=== PATIENT | female | born 1930 | race Caucasian/White ===

== ENCOUNTER → 2017-10-12 | Outpatient (CLI) | payer MEDICARE, BC ==
--- NOTE | 2017-10-12 14:58 | XR ---
EXAMINATION TYPE: XR abdomen acute w cxr DATE OF EXAM: 10/12/2017 COMPARISON: 09/28/2015 HISTORY: Pain TECHNIQUE: Supine, upright, and left side down lateral decubitus views of the abdomen are obtained. FINDINGS: Subsegmental changes at both lung bases suggestive of scar or atelectasis. Heart is enlarge d and is atherosclerotic change aorta with no pneumothorax or interstitial edema. Diffuse osteopenia and degenerative change of the spine. There is retained fecal debris within the right colon in a dilated bowel loop of small bowel the righ t abdomen. There is a large gallstone in the right upper quadrant. Scoliosis with degenerative change of the spine. Arthropathy of the right hip and postsurgical change left hip. Vascular calcifications noted. IMPRESSION: Nonspecific abdomen there is a dilated bowel loop in the right abdomen which could be related to loca lized ileus or enteritis. Partial obstruction not excluded correlate clinically. Gallstone
== END | disposition home or self-care (01) ==
LOC: RADXRYALE 14:28
PROVIDERS: ATTEND Family Medicine
DX: K80.20 Calculus of gallbladder without cholecystitis without obstruction (principal)
CPT/HCPCS: 74022

== ENCOUNTER 2017-10-15 12:13 | Emergency (ER) | payer MEDICARE, BC ==
[2017-10-15 15:01] LABS: Basophils % (A) 1 %; Eosinophils # (A) 0.2 k/uL (0-0.7); Eosinophils % (A) 3 %; HCT 40.9 % (34.0-46.0); HGB 13.8 gm/dL (11.4-16.0); Lymphocytes # (A) 2.1 k/uL (1.0-4.8); Lymphocytes % (A) 28 %; MCH 31.4 pg (25.0-35.0); MCHC 33.8 g/dL (31.0-37.0); MCV 92.8 fL (80.0-100.0); Mean Platelet Volume 7.2; Monocytes # (A) 0.3 k/uL (0-1.0); Monocytes % (A) 4 %; Neutrophils # (A) 4.6 k/uL (1.3-7.7); Neutrophils % (A) 63 %; Platelet Count 237 k/uL (150-450); RBC 4.41 m/uL (3.80-5.40); RDW 14.2 % (11.5-15.5); WBC 7.3 k/uL (3.8-10.6)
[2017-10-15 15:08] LABS: Albumin 3.7 g/dL (3.5-5.0); Potassium 3.5 mmol/L (3.5-5.1); Total Bilirubin 0.7 mg/dL (0.2-1.3); Total Protein 6.7 g/dL (6.3-8.2)
[2017-10-15] MEDS ORDERED: SODIUM CHLORIDE 0.9% 1,000 ML IV ONE (15:51)
[2017-10-15] MEDS ORDERED: MORPHINE SULFATE 2 MG/ML SYRINGE IVP ONE (15:52)
[2017-10-15] MEDS ORDERED: SODIUM CHLORIDE 0.9% 1,000 ML IV SCH (16:00)
[2017-10-15 16:41] LABS: Appearance,Urine Clear (Clear); Bacteria,Urine Few /hpf; Bilirubin,Urine Negative (Negative); Blood,Urine Negative (Negative); Color,Urine Yellow; Glucose,Urine (UA) Negative (Negative); Hyaline Casts,Urine 3 /lpf (0-2); Ketones,Urine Negative (Negative); Leukocyte Esterase,Urine Moderate (Negative); Mucus,Urine Rare /hpf; Nitrite,Urine Negative (Negative); PH, Urine 7.5 (5.0-8.0); Protein,Urine Negative (Negative); RBC,Urine 1 /hpf (0-5); Specific Gravity,Urine 1.012 (1.001-1.035); Squamous Epithelial Cell,Urine 1 /hpf (0-4); Urobilinogen,Urine <2.0 mg/dL (<2.0); WBC,Urine 8 /hpf (0-5)
--- NOTE | 2017-10-15 17:08 | CT ---
EXAMINATION TYPE: CT abdomen pelvis wo con DATE OF EXAM: 10/15/2017 COMPARISON: NONE HISTORY: Generalized abdominal pain. CT DLP: 812 mGycm Automated exposure control for dose reduction was used. TECHNIQUE: Helical acquisition of images from the lung bases through the pelvis. FINDINGS: Lack of contrast may compromise sensitivity of the exam. LUNG BASES: Subpleural nodule is present on axial image 4 in the left lower lobe. There are some pare nchymal linear bands at the lung bases which may be due to atelectasis or scarring. Some minimal grou ndglass opacity is present dependently greater on the left than on the right, possible scarring. Meeta nary artery calcifications are present. There is a hiatal hernia present. AORTA: Dense calcifications are present within the wall of the aorta.. LIVER/GB: Calcified gallstone is noted. Liver shows no mass. PANCREAS: No significant abnormality is seen. SPLEEN: No significant abnormality is seen. ADRENALS: No significant abnormality is seen. KIDNEYS: Calcifications within the kidneys may be vascular, there is no evident ureteral calcificatio n REPRODUCTIVE ORGANS: No significant abnormality is seen. URINARY BLADDER: No significant abnormality is seen. BOWEL: Scattered diverticular change noted in this sigmoid colon. No evident bowel obstruction. Appe ndix is normal. FREE AIR: No Free Air is visible. ASCITES: None visible. PELVIC ADENOPATHY: None visualized. RETROPERITONEAL ADENOPATHY: No Retroperitoneal Adenopathy visible. OSSEOUS STRUCTURES: Patient is post left hip arthroplasty. Degenerative disc changes are present in the visualized spine. Suspect a disc herniation at L3-4 extending towards the left lateral aspect of the spinal canal. There is a spinal curvature.. IMPRESSION: NONCONTRAST EXAM. DIVERTICULOSIS. DEGENERATIVE DISC DISEASE, DISC HERNIATION IN THE LUMBAR SPINE. CHO LELITHIASIS. PROBABLE BASILAR LUNG SCARRING. PERIPHERAL VASCULAR OCCLUSIVE DISEASE. FOLLOW-UP NOBLE CATED.
--- NOTE | 2017-10-15 17:11 | ED ---
Abdominal Pain HPI - General Chief Complaint: Abdominal Pain Stated Complaint: poss bowel obstruction Time Seen by Provider: 10/15/17 15:20 Source: patient, family, RN notes reviewed, old records reviewed Mode of arrival: wheelchair Limitations: no limitations - History of Present Illness Initial Comments: Patient is a 87-year-old female presents emergency with 1 month of lower abdominal pain. She reports is worse with movement, and the pain seems a somewhat "catch her". With certain movement. Patient states that she's had infrequent stools. Patient had an x-ray 2 days ago which questioned ileus possible partial bowel obstruction. She reports that she's had no vomiting. No fevers or chills. Patient has been using MiraLAX and magnesium citrate to help her personal bowel movements. - Related Data Home Medications Medication Instructions Recorded Confirmed Furosemide [Lasix] 10 mg PO DAILY 12/10/14 10/15/17 Losartan/Hydrochlorothiazide 1 tab PO DAILY 12/10/14 10/15/17 [Losartan-Hctz 100-12.5 mg Tab] Omeprazole [PriLOSEC] 20 mg PO DAILY 12/10/14 10/15/17 Potassium Chloride [Klor-Con 10] 10 meq PO DAILY 12/10/14 10/15/17 Verapamil HCl 120 mg PO DAILY 12/10/14 10/15/17 Warfarin [Coumadin] 2.5 mg PO SUMOWETHFRSA 10/15/17 10/15/17 Warfarin [Coumadin] 5 mg PO TU 10/15/17 10/15/17 Previous Rx's Medication Instructions Recorded Aspirin EC [Ecotrin Low Dose] 81 mg PO DAILY tablet. 09/30/15 Atorvastatin Calcium [Lipitor] 80 mg PO DAILY #30 tab 09/30/15 Polyethylene Glycol 3350 [Miralax] 17 gm PO DAILY #30 packet 10/15/17 traMADol HCl [Ultram] 50 mg PO Q6HR PRN 3 Days #12 tab 10/15/17 Allergies Allergy/AdvReac Type Severity Reaction Status Date / Time No Known Allergies Allergy Verified 10/15/17 16:10 Review of Systems ROS Statement: Those systems with pertinent positive or pertinent negative responses have been documented in the HPI. ROS Other: All systems not noted in ROS Statement are negative. Past Medical History Past Medical History: Atrial Fibrillation, GERD/Reflux, Hyperlipidemia, Hypertension, Thyroid Disorder Additional Past Medical History / Comment(s): States she has cataracts, macular degeneration, glaucoma; thyroid removed in 1952, hip fracture left hip 08/22/2015 History of Any Multi-Drug Resistant Organisms: None Reported Past Surgical History: Tonsillectomy Additional Past Surgical History / Comment(s): Thyroidectomy in 1952, B/L carotid endartarectomy 2001, colonoscopies-diverticulosis,RECENT LT HIP HEMIARTHROPLASTY. Past Anesthesia/Blood Transfusion Reactions: No Reported Reaction Past Psychological History: No Psychological Hx Reported Smoking Status: Former smoker Past Alcohol Use History: None Reported Past Drug Use History: None Reported - Past Family History Father Family Medical History: Myocardial Infarction ([place]) Mother Additional Family Medical History / Comment(s): Thinks mother had congestive heart General Exam - General Exam Comments Initial Comments: 87-year-old female. Alert and oriented. No significant distress. Limitations: no limitations General appearance: alert, in no apparent distress Head exam: Present: atraumatic, normocephalic, normal inspection Eye exam: Present: normal appearance, PERRL, EOMI. Absent: scleral icterus, conjunctival injection, periorbital swelling ENT exam: Present: normal exam, mucous membranes moist Neck exam: Present: normal inspection. Absent: tenderness, meningismus, lymphadenopathy Respiratory exam: Present: normal lung sounds bilaterally. Absent: respiratory distress, wheezes, rales, rhonchi, stridor Cardiovascular Exam: Present: regular rate, normal rhythm, normal heart sounds, other. Absent: systolic murmur, diastolic murmur, rubs, gallop, clicks GI/Abdominal exam: Present: soft, normal bowel sounds, other (Patient has no focal tenderness however she reports that her abdomen is painful whenever she moves positions.). Absent: distended, tenderness, guarding, rebound, rigid Course Vital Signs 10/15/17 10/15/17 13:19 19:20 Temperature 97.5 F L 98.1 F Pulse Rate 69 91 Respiratory 16 18 Rate Blood Pressure 100/67 169/81 O2 Sat by Pulse 95 96 Oximetry Medical Decision Making - Medical Decision Making 87-year-old female presents emergency department with a few months of abdominal pain. Also reports decreased stool output. She has no other complaints denies any chest pain shortness of breath. Patient's labwork was reviewed. Mild elevation. Creatinine over his last visits. She was given a fluid bolus. Patient's CT and pelvis without contrast was completed. There is no evidence of any acute abnormality. She had changes throughout the spine. Does have peripheral vascular disease. Patient's whereabouts the findings of the CT. There is no signs of obstruction. I Patient does appear cell constipated. We' ll put the Patient on stool softeners and continue magnesium citrate. Patient' s abdominal pain is worse with movement. Whenever she sits up. It seems to be muscular skeletal in nature. Positive Kernig sign. Patient will be discharged with anti-inflammatory medicine and short course of pain medicine the Patient is here. I discussed appropriate follow-up with PCP. All questions answered return parameters were discussed. - Lab Data Result diagrams: 10/15/17 14:20 10/15/17 14:20 Lab Results 10/15/17 10/15/17 10/15/17 Range/Units 14:20 14:20 16:03 WBC 7.3 (3.8-10.6) k/uL RBC 4.41 (3.80-5.40) m/uL Hgb 13.8 (11.4-16.0) gm/dL Hct 40.9 (34.0-46.0) % MCV 92.8 (80.0-100.0) fL MCH 31.4 (25.0-35.0) pg MCHC 33.8 (31.0-37.0) g/dL RDW 14.2 (11.5-15.5) % Plt Count 237 (150-450) k/uL Neutrophils % 63 % Lymphocytes % 28 % Monocytes % 4 % Eosinophils % 3 % Basophils % 1 % Neutrophils # 4.6 (1.3-7.7) k/uL Lymphocytes # 2.1 (1.0-4.8) k/uL Monocytes # 0.3 (0-1.0) k/uL Eosinophils # 0.2 (0-0.7) k/uL Basophils # 0.0 (0-0.2) k/uL Sodium 138 (137-145) mmol/L Potassium 3.5 (3.5-5.1) mmol/L Chloride 96 L (98-107) mmol/L Carbon Dioxide 31 H (22-30) mmol/L Anion Gap 11 mmol/L BUN 26 H (7-17) mg/dL Creatinine 1.24 H (0.52-1.04) mg/dL Est GFR (CKD-EPI)AfAm 45 (>60 ml/min/1.73 sqM) Est GFR (CKD-EPI)NonAf 39 (>60 ml/min/1.73 sqM) Glucose 137 H (74-99) mg/dL Calcium 9.0 (8.4-10.2) mg/dL Total Bilirubin 0.7 (0.2-1.3) mg/dL AST 32 (14-36) U/L ALT 23 (9-52) U/L Alkaline Phosphatase 125 (38-126) U/L Total Protein 6.7 (6.3-8.2) g/dL Albumin 3.7 (3.5-5.0) g/dL Amylase 94 (30-110) U/L Lipase 94 (23-300) U/L Urine Color Yellow Urine Appearance Clear (Clear) Urine pH 7.5 (5.0-8.0) Ur Specific [place] 1.012 (1.001-1.035) Urine Protein Negative (Negative) Urine Glucose (UA) Negative (Negative) Urine Ketones Negative (Negative) Urine Blood Negative (Negative) Urine Nitrite Negative (Negative) Urine Bilirubin Negative (Negative) Urine Urobilinogen <2.0 (<2.0) mg/dL Ur Leukocyte Esterase Moderate H (Negative) Urine RBC 1 (0-5) /hpf Urine WBC 8 H (0-5) /hpf Ur Squamous Epith Cells 1 (0-4) /hpf Urine Bacteria Few H (None) /hpf Hyaline Casts 3 H (0-2) /lpf Urine Mucus Rare H (None) /hpf 10/15/ 19:54 EKG shows atrial fibrillation with right Dillon block. Abnormal EKG. Ventricular rate 86 bpm. ND interval is and checked. Her hydration 138. QT QTc is 442/528 ms. - Radiology Data Radiology results: report reviewed Noncontrast exam. Diverticulosis. Degenerative disease. Disc herniation lumbar spine. Cholelithiasis. Probable basilar lung scarring. Peripheral vascular occlusive disease follow up as indicated. Disposition Clinical Impression: Abdominal wall pain, Constipation, DDD (degenerative disc disease) Disposition: HOME SELF-CARE Condition: Good Instructions: Constipation (ED), Abdominal Pain (ED) Additional Instructions: Patient should have 2-3 scoops of MiraLAX powder with water a day. Make sure having 8 glasses of water minimum a day. Take Tylenol or Motrin for the pain with her muscles in the abdomen. He can also use Ultram if the pain is severe, make sure you are monitored if taking this medication. You are at risk for falls. Patient should follow-up in one week with Dr. Newell. Return to the emergency department if any alarming signs or symptoms occur. Prescriptions: Polyethylene Glycol 3350 [Miralax] 17 gm PO DAILY #30 packet traMADol HCl [Ultram] 50 mg PO Q6HR PRN 3 Days #12 tab PRN Reason: Pain Is patient prescribed a controlled substance at d/c from ED?: Yes When asked, does pt state using other controlled substances?: No If prescribed controlled substance>3 days was MAPS reviewed?: Prescribed <3 Days If opioid is for acute pain is fill amount 7 days or less?: Yes If Rx opioid, was Start Talking consent form obtained?: Yes Referrals: Herbert Newell MD [Primary Care Provider] - 1-2 days Time of Disposition: 18:33
[2017-10-15 19:21] VITALS: BP 169/81; PULSE 91; RESP 18; TEMP 98.1
== END 2017-10-15 19:25 | disposition home or self-care (01) ==
LOC: EC 12:13
DX: K59.00 Constipation, unspecified (principal); M51.36 Other intervertebral disc degeneration, lumbar region; K57.90 Diverticulosis of intestine, part unspecified, without perforation or abscess without bleeding; M51.26 Other intervertebral disc displacement, lumbar region; K80.20 Calculus of gallbladder without cholecystitis without obstruction; I99.8 Other disorder of circulatory system; I48.91 Unspecified atrial fibrillation; I97.89 Other postprocedural complications and disorders of the circulatory system, not elsewhere classified; R94.31 Abnormal electrocardiogram [ECG] [EKG]; I73.9 Peripheral vascular disease, unspecified; I10 Essential (primary) hypertension; K21.9 Gastro-esophageal reflux disease without esophagitis; Z87.891 Personal history of nicotine dependence; Z79.01 Long term (current) use of anticoagulants; Z79.899 Other long term (current) drug therapy; Z98.890 Other specified postprocedural states; Z82.49 Family history of ischemic heart disease and other diseases of the circulatory system
CPT/HCPCS: 36415; 93005; 80053; 82150; 83690; 85025; 81001; 74176; 99285; 96374; 96361 ×3; J2270

== ENCOUNTER → 2018-06-11 | Outpatient (CLI) | payer MEDICARE, BC ==
--- NOTE | 2018-06-12 09:05 | XR ---
EXAMINATION TYPE: XR sacrum coccyx DATE OF EXAM: 06/11/2018 COMPARISON: NONE HISTORY: Pain Three views are submitted. Sacrum is intact. SI joints are symmetric. Coccyx appears to be intact. Visualized pelvic structures intact. There is diffuse osteopenia. Arthropathy of the right hip and postsurgical change left hip. Severe degenerative change lower lumbar spine. Bilateral changes of sa croiliitis. Calcifications in the pelvis likely vascular. IMPRESSION: 1. No acute fracture. 2. Diffuse osteopenia and severe degenerative disc disease lower lumbar spine.
== END | disposition home or self-care (01) ==
LOC: RADXRYALE 14:32
PROVIDERS: ATTEND Nurse Practitioner Family
DX: M51.36 Other intervertebral disc degeneration, lumbar region (principal); M85.88 Other specified disorders of bone density and structure, other site
CPT/HCPCS: 72220

== ENCOUNTER → 2019-04-03 | Outpatient (CLI) | payer MEDICARE, BC ==
--- NOTE | 2019-04-03 15:53 | XR ---
EXAMINATION TYPE: XR finger RT DATE OF EXAM: 04/03/2019 COMPARISON: NONE HISTORY: Pain and swelling TECHNIQUE: Two soft tissue edema noted. Views are submitted. FINDINGS: There is diffuse osteopenia. There is narrowing of the MCP, PIP and DIP joints of all digits. No eros abdirashid changes. There is a deformity involving the base of the middle phalanx fifth digit. IMPRESSION: 1. There is a deformity involving the base of the middle phalanx fifth digit suspicious for a fractur e. Extends to the articular surface. Likely along the volar plate correlate with point tenderness.
== END | disposition home or self-care (01) ==
LOC: RADXRYALE 15:13
PROVIDERS: ATTEND Nurse Practitioner Family
DX: M20.001 Unspecified deformity of right finger(s) (principal); L53.9 Erythematous condition, unspecified

== ENCOUNTER → 2019-04-07 | Outpatient (CLI) | payer MEDICARE, BC ==
--- NOTE | 2019-04-07 15:35 | CT ---
EXAMINATION TYPE: CT brain wo con DATE OF EXAM: 04/07/2019 COMPARISON: 09/28/2015 HISTORY: Frequent falls and confusion. CT DLP: [address] of the brain was performed. The ventricles, basal cisterns and sulci overlying the cerebral convexities demonstrate mild enlargem ent. There is no evidence for intracranial hemorrhage or sulcal effacement. There is decreased attenuation about the periventricular white matter and deep white matter of both c erebral hemispheres, compatible with chronic small vessel ischemia. Differential diagnosis does inclu de demyelination. No mass effects are seen.No midline shift. Osseous calvarium is intact. If symptoms persist consider MRI. IMPRESSION: 1. Age related atrophic and chronic small vessel ischemic change without acute intracranial process s een at this time.
== END | disposition home or self-care (01) ==
LOC: RADCTMAIN 15:09
PROVIDERS: ATTEND Family Medicine
DX: G31.1 Senile degeneration of brain, not elsewhere classified (principal); I67.82 Cerebral ischemia; R29.6 Repeated falls; R41.0 Disorientation, unspecified
CPT/HCPCS: 70450

== ENCOUNTER 2019-05-12 19:00 | Inpatient (IN) | payer MEDICARE, BC ==
[2019-05-12] MEDS ORDERED: LIDOCAINE 5% PATCH TOPICAL STA (19:32)
--- NOTE | 2019-05-12 19:35 | ED ---
General Adult HPI - General Chief complaint: Fall Stated complaint: Hip pain/Fall Time Seen by Provider: 05/12/19 19:15 Source: patient Mode of arrival: ambulatory Limitations: no limitations - History of Present Illness Initial comments: Dictation was produced using [employer] dictation software. please excuse any grammatical, word or spelling errors. Chief Complaint: 88-year-old female with past medical history of atrial fibrillation hypertension presents with back pain after fall. History of Present Illness:-year-old female she fell approximately 2 days ago. She states she sat on the toilet. 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 Patient states she fell backwards striking her back on the ball of the toilet. Patient not sure if she lost any consciousness. She is on Coumadin for atrial fibrillation. She was brought in by family members today. Patient states that she is here mostly for the back pain. She has pain gets worse in the right lower thoracic back area. She states that it significantly tender with palpation. Daughter also at bedside reports that patient has been having dizzy spells recently. She seemed to be wobbly on her feet. The ROS documented in this emergency department record has been reviewed and confirmed by me. Those systems with pertinent positive or negative responses have been documented in the HPI. All other systems are other negative and/or noncontributory. PHYSICAL EXAM: General Impression: Alert and oriented x3, not in acute distress HEENT: Normocephalic atraumatic, extra-ocular movements intact, pupils equal and reactive to light bilaterally, mucous membranes moist. Cardiovascular: Heart regular rate and rhythm, S1&S2 audible, no murmurs, rubs or gallops Chest: Lungs clear to auscultation bilaterally, ecchymoses noted over the right lower right thoracic area. Palpation to this area is exquisitely tender Abdomen: Bowel sounds present, abdomen soft, non-tender, non-distended, no organomegaly Musculoskeletal: Pulses present and equal in all extremities, no peripheral edema Motor: no focal deficits noted Neurological: CN II-XII grossly intact, no focal motor or sensory deficits noted Skin: Intact with no visualized rashes Psych: Normal affect and mood ED course: 88 y Old female presents after fall. Daughter also reports that patient has seemed to be more steady on her feet more than usual. Vital signs On arrival are within acceptable limits. Abdomen evaluation obtained. CBC, coag panel, metabolic panel obtained. INR 3.0. Urinalysis shows 25 white blood cells however patient does not have any urinary symptoms. We will withhold antibiotics at this time until cultures are completed. Computed tomography scan of the head and C-spine was obtained showing no acute processes. Chest CT is negative. Patient given Lidoderm patch over the area of her point tenderness. Discussed patient case with family. There were 3 daughters at bedside. They felt that patient is not safe for discharge. She lives at home with another elderly individual. Patient has had frequent falls recently she is also had difficulty performing her activities daily living. None of the daughters were able to care for patient if she was discharged. They're also concerned about some hallucinations that patient has been experiencing. Given that there is no seat discharged with patient would benefit from a short hospital admission with consultation to social work. Attempt was made to ambulate patient at bedside. She is very weak and even had difficulty standing. She'll be admitted to Dr. Harris's service. - Related Data Home Medications Medication Instructions Recorded Confirmed Furosemide [Lasix] 10 mg PO DAILY 12/10/14 05/12/19 Losartan/Hydrochlorothiazide 1 tab PO DAILY 12/10/14 05/12/19 [Losartan-Hctz 100-12.5 mg Tab] Omeprazole [PriLOSEC] 20 mg PO DAILY 12/10/14 05/12/19 Potassium Chloride [Klor-Con 10] 10 meq PO HS 12/10/14 05/12/19 Verapamil HCl 120 mg PO DAILY 12/10/14 05/12/19 Warfarin [Coumadin] 5 mg PO TU 10/15/17 05/12/19 Atorvastatin Calcium [Lipitor] 80 mg PO HS 05/12/19 05/12/19 Warfarin [Coumadin] 2.5 mg PO SUMOWETHFRSA 05/12/19 05/12/19 metFORMIN HCL 500 mg PO 05/12/19 05/12/19 Allergies Allergy/AdvReac Type Severity Reaction Status Date / Time No Known Allergies Allergy Verified 05/12/19 21:15 Review of Systems ROS Statement: Those systems with pertinent positive or pertinent negative responses have been documented in the HPI. ROS Other: All systems not noted in ROS Statement are negative. Past Medical History Past Medical History: Atrial Fibrillation, CVA/TIA, GERD/Reflux, Hyperlipidemia, Hypertension, Thyroid Disorder Additional Past Medical History / Comment(s): States she has cataracts, macular degeneration, glaucoma; thyroid removed in 1952, hip fracture left hip 08/22/2015 History of Any Multi-Drug Resistant Organisms: None Reported Past Surgical History: Tonsillectomy Additional Past Surgical History / Comment(s): Thyroidectomy in 1952, B/L carotid endartarectomy 2001, colonoscopies-diverticulosis,RECENT LT HIP HEMIARTHROPLASTY. Past Anesthesia/Blood Transfusion Reactions: No Reported Reaction Past Psychological History: No Psychological Hx Reported Smoking Status: Former smoker Past Alcohol Use History: None Reported Past Drug Use History: None Reported - Past Family History Father Family Medical History: Myocardial Infarction ([place]) Mother Additional Family Medical History / Comment(s): Thinks mother had congestive heart General Exam Limitations: no limitations Course Vital Signs 05/12/19 19:06 Temperature 97.7 F Pulse Rate 80 Respiratory 20 Rate Blood Pressure 130/65 O2 Sat by Pulse 98 Oximetry Medical Decision Making - Lab Data Result diagrams: 05/12/19 19:50 05/12/19 19:50 Lab Results 05/12/19 05/12/19 05/12/19 Range/Units 19:50 19:50 19:50 WBC 8.1 (3.8-10.6) k/uL RBC 4.34 (3.80-5.40) m/uL Hgb 14.1 (11.4-16.0) gm/dL Hct 41.7 (34.0-46.0) % MCV 96.2 (80.0-100.0) fL MCH 32.4 (25.0-35.0) pg MCHC 33.7 (31.0-37.0) g/dL RDW 13.4 (11.5-15.5) % Plt Count 193 (150-450) k/uL Neutrophils % 60 % Lymphocytes % 27 % Monocytes % 5 % Eosinophils % 5 % Basophils % 1 % Neutrophils # 4.8 (1.3-7.7) k/uL Lymphocytes # 2.2 (1.0-4.8) k/uL Monocytes # 0.4 (0-1.0) k/uL Eosinophils # 0.4 (0-0.7) k/uL Basophils # 0.1 (0-0.2) k/uL PT 29.7 H (9.0-12.0) sec INR 3.0 H (<1.2) APTT 36.0 H (22.0-30.0) sec Sodium 141 (137-145) mmol/L Potassium 3.6 (3.5-5.1) mmol/L Chloride 105 (98-107) mmol/L Carbon Dioxide 26 (22-30) mmol/L Anion Gap 10 mmol/L BUN 21 H (7-17) mg/dL Creatinine 1.04 (0.52-1.04) mg/dL Est GFR (CKD-EPI)AfAm 56 (>60 ml/min/1.73 sqM) Est GFR (CKD-EPI)NonAf 49 (>60 ml/min/1.73 sqM) Glucose 135 H (74-99) mg/dL Calcium 8.9 (8.4-10.2) mg/dL Magnesium 1.7 (1.6-2.3) mg/dL Troponin I (0.000-0.034) ng/mL Urine Color Urine Appearance (Clear) Urine pH (5.0-8.0) Ur Specific [place] (1.001-1.035) Urine Protein (Negative) Urine Glucose (UA) (Negative) Urine Ketones (Negative) Urine Blood (Negative) Urine Nitrite (Negative) Urine Bilirubin (Negative) Urine Urobilinogen (<2.0) mg/dL Ur Leukocyte Esterase (Negative) Urine RBC (0-5) /hpf Urine WBC (0-5) /hpf Ur Squamous Epith Cells (0-4) /hpf Hyaline Casts (0-2) /lpf Urine Mucus (None) /hpf 05/12/19 05/12/19 Range/Units 19:50 20:09 WBC (3.8-10.6) k/uL RBC (3.80-5.40) m/uL Hgb (11.4-16.0) gm/dL Hct (34.0-46.0) % MCV (80.0-100.0) fL MCH (25.0-35.0) pg MCHC (31.0-37.0) g/dL RDW (11.5-15.5) % Plt Count (150-450) k/uL Neutrophils % % Lymphocytes % % Monocytes % % Eosinophils % % Basophils % % Neutrophils # (1.3-7.7) k/uL Lymphocytes # (1.0-4.8) k/uL Monocytes # (0-1.0) k/uL Eosinophils # (0-0.7) k/uL Basophils # (0-0.2) k/uL PT (9.0-12.0) sec INR (<1.2) APTT (22.0-30.0) sec Sodium (137-145) mmol/L Potassium (3.5-5.1) mmol/L Chloride (98-107) mmol/L Carbon Dioxide (22-30) mmol/L Anion Gap mmol/L BUN (7-17) mg/dL Creatinine (0.52-1.04) mg/dL Est GFR (CKD-EPI)AfAm (>60 ml/min/1.73 sqM) Est GFR (CKD-EPI)NonAf (>60 ml/min/1.73 sqM) Glucose (74-99) mg/dL Calcium (8.4-10.2) mg/dL Magnesium (1.6-2.3) mg/dL Troponin I <0.012 (0.000-0.034) ng/mL Urine Color Yellow Urine Appearance Clear (Clear) Urine pH 5.5 (5.0-8.0) Ur Specific [place] 1.023 (1.001-1.035) Urine Protein Trace H (Negative) Urine Glucose (UA) Negative (Negative) Urine Ketones Negative (Negative) Urine Blood Negative (Negative) Urine Nitrite Negative (Negative) Urine Bilirubin Negative (Negative) Urine Urobilinogen <2.0 (<2.0) mg/dL Ur Leukocyte Esterase Large H (Negative) Urine RBC 1 (0-5) /hpf Urine WBC 25 H (0-5) /hpf Ur Squamous Epith Cells 1 (0-4) /hpf Hyaline Casts 6 H (0-2) /lpf Urine Mucus Rare H (None) /hpf Disposition Clinical Impression: Debility, Fall Disposition: ADMITTED IP TO THIS HOSP Condition: Fair Referrals: Herbert Newell MD [Primary Care Provider] - 1-2 days Decision Time: 21:48
[2019-05-12 20:13] LABS: Basophils # (A) 0.1 k/uL (0-0.2); Basophils % (A) 1 %; Eosinophils # (A) 0.4 k/uL (0-0.7); Eosinophils % (A) 5 %; HCT 41.7 % (34.0-46.0); HGB 14.1 gm/dL (11.4-16.0); Lymphocytes # (A) 2.2 k/uL (1.0-4.8); Lymphocytes % (A) 27 %; MCH 32.4 pg (25.0-35.0); MCHC 33.7 g/dL (31.0-37.0); MCV 96.2 fL (80.0-100.0); Mean Platelet Volume 8.4; Monocytes # (A) 0.4 k/uL (0-1.0); Monocytes % (A) 5 %; Neutrophils # (A) 4.8 k/uL (1.3-7.7); Neutrophils % (A) 60 %; Platelet Count 193 k/uL (150-450); RBC 4.34 m/uL (3.80-5.40); RDW 13.4 % (11.5-15.5); WBC 8.1 k/uL (3.8-10.6)
[2019-05-12 20:18] LABS: Calcium 8.9 mg/dL (8.4-10.2); Magnesium 1.7 mg/dL (1.6-2.3); Potassium 3.6 mmol/L (3.5-5.1)
[2019-05-12 20:27] LABS: Prothrombin Time 29.7 sec (9.0-12.0)
[2019-05-12 20:33] LABS: Appearance,Urine Clear (Clear); Bilirubin,Urine Negative (Negative); Blood,Urine Negative (Negative); Color,Urine Yellow; Glucose,Urine (UA) Negative (Negative); Hyaline Casts,Urine 6 /lpf (0-2); Ketones,Urine Negative (Negative); Leukocyte Esterase,Urine Large (Negative); Mucus,Urine Rare /hpf; Nitrite,Urine Negative (Negative); PH, Urine 5.5 (5.0-8.0); Protein,Urine Trace (Negative); RBC,Urine 1 /hpf (0-5); Specific Gravity,Urine 1.023 (1.001-1.035); Squamous Epithelial Cell,Urine 1 /hpf (0-4); Urobilinogen,Urine <2.0 mg/dL (<2.0); WBC,Urine 25 /hpf (0-5)
--- NOTE | 2019-05-12 20:36 | CT ---
EXAMINATION TYPE: CT chest wo con DATE OF EXAM: 05/12/2019 COMPARISON: None HISTORY: Upper back pain, fall injury x2 days ago CT DLP: 312.3 mGycm Automated exposure control for dose reduction was used. There is small right pleural effusion. Heart is enlarged. There is moderate hiatal hernia. There is s ome atelectasis and infiltrate right lung base. There is mild fibrotic changes at the lung bases. The re is aortic valvular calcification. There is coronary artery calcification. There are large densely calcified gallstones. The upper lung agarwal are clear. I see no compression f racture of the thoracic spine. IMPRESSION: Atherosclerotic vascular disease. Cardiomegaly. Right pleural effusion and right basilar mild infiltr ate and atelectasis. No evidence of any significant compression deformity of the thoracic spine. No displaced rib fracture seen.
--- NOTE | 2019-05-12 20:49 | CT ---
EXAMINATION TYPE: CT brain heena de la o con DATE OF EXAM: 05/12/2019 COMPARISON: 04/07/[address] scan HISTORY: Upper back pain, fall injury x2 days ago CT DLP: 1358.3 mGycm Automated exposure control for dose reduction was used. There is cerebral cortical atrophy. There is mild hypodensity in the periventricular white matter. Th ere is no mass effect nor midline shift. There is no sign of intracranial hemorrhage. Calvarium is in tact. Cervical vertebra have fairly normal alignment. There is a few millimeter anterior subluxation of C3 on C4. There is narrowing of disc spaces from C4 to C6. There is no compression fracture. There is mi ld multilevel cervical hypertrophic facet arthropathy. The skull base is intact. There is mucus reten tion cyst in the right side of the sphenoid sinus. 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 No fracture. Cerebral atrophy and chronic small vessel ischemia. No acute intracranial abnormality. No change comp ared to old exam.
[2019-05-12] MEDS ORDERED: NALOXONE 0.4 MG/ML 1 ML VIAL IV PRN (21:44)
[2019-05-12] MEDS: SODIUM CHLORIDE 0.9% 1,000 ML IV SCH (23:30)
[2019-05-13] MEDS: LOSARTAN 50 MG TAB PO SCH (08:29)
[2019-05-13] MEDS: LOSARTAN-HCTZ 50-12.5 MG 1 EACH TAB PO SCH (08:30)
[2019-05-13 09:50] LABS: INR 3.1 (<1.2)
[2019-05-13 09:51] LABS: Prothrombin Time 30.3 sec (9.0-12.0)
[2019-05-13] MEDS: PANTOPRAZOLE 40 MG TABLET PO SCH (12:42)
[2019-05-13] MEDS: VERAPAMIL SR 120 MG TABLET.ER PO SCH (12:42)
--- NOTE | 2019-05-13 15:46 | P.HPIM ---
History of Present Illness H&P Date: 05/13/19 Chief Complaint: Falls History of presenting complaint: This is a pleasant 88-year-old patient of Dr. Newell. Other extensive medical history to include chronic stable conditions, it'll fibrillation, hypothyroid, hypertension, hyperlipidemia, GERD, diverticulosis, osteoarthritis, left internal Carotid artery stenosis less than 69%, right internal carotid stenosis 90%.. Patient has been living with a friend for many years. He is unable to take care of the patient anymore as he has is on medical issues. Most of the history is obtained by the daughter the bedside. He does use a walker. what happens as patient will slowly from a fall backwards. Denies any chest pain no palpitation. Maybe getting dizzy upon standing up. Patient's memory has been failing. Appetite is okay no trouble with her bowels. Patient does complaint of pain in his lower back sometimes coming around to side and sometimes also pain in the right hip. Review of systems: GEN.: Tired EYES: None HEENT: Decreased hearing NECK: None RESPIRATORY: None CARDIOVASCULAR: None GASTROINTESTINAL: None GENITOURINARY: None MUSCULOSKELETAL: Pain in different joints LYMPHATICS: None HEMATOLOGICAL: None PSYCHIATRY: Forgetful NEUROLOGICAL: Uses a walker Past medical history to include: CVA, atrial fibrillation, hypothyroid, hyperlipidemia, hypertension, GERD, diverticulosis, osteoarthritis, left internal carotid artery stenosis less than 69%, right internal carotid artery stenosis more than 90%. Social history: Patient smoked a pack a day for close to 70 years. Stopped 4 years ago. Was li ving with a male friend for many years. Does use a walker.. No alcohol. Physical examination: VITAL SIGNS: 97, 77, 20, 92/62, 95% on room air GENERAL: BMI 28.9 sitting up in a chair, awake. EYES: Pupils equal. Conjunctiva normal. HEENT: External appearance of nose and ears normal, oral cavity grossly normal. NECK: JVD not raised; masses not palpable. HEART: First and second heart sounds are normal; no edema. LUNGS: Respiratory rate normal; clear to auscultation. ABDOMEN: Soft, nontender, liver spleen not palpable, no masses palpable. PSYCH: Alert and oriented x3; mood and affect normal. MUSCULOSKELETAL: Some tenderness over the right hip, evidence of OA especially in the hands NEUROLOGICAL: Cranial nerves grossly intact; no facial asymmetry, power and sensation grossly intact. LYMPHATICS: No lymph nodes palpable in the axilla and neck INVESTIGATIONS, reviewed in the clinical context: White count 8.1 hemoglobin 14.1 INR 3 potassium 3.6 creatinine 1.04 UA positive for leukoesterase, WBC EKG tracing personally reviewed by me-atrial flutter rate controlled CT chest without contrast cardiomegaly, some right pleural effusion and infiltrate, moderate hiatal hernia Computed tomography scan of the brain cerebral atrophy with no acute Assessment: -This is the patient's been having falls at home. As described with her daughter this only as falls backwards. The skin is dizzy on standing up. Patient have orthostatic hypotension and also possibly disequilibrium from multiple factors including severe arthritis and possibly neuropathy. -Persistent atrial fibrillation chronically on Coumadin -Coumadin monitoring -Hyperlipidemia -Essential hypertension -GERD -Chronic diverticulosis -Primary osteoarthritis -Left internal Stenosis Less Than 65% with Left Side and More Than 90% on the Right Side -Cognitive Impairment - Plan: We'll Get Orthostatic Checked.. PTOT Was Consulted. Home Medications Resumed. Gentle Hydration for Now. Patient Has No Focal Symptoms or Signs. Did Discuss with the Daughter Patient Will Probably Need Physical Therapy Inpatient Placeme nt and Subsequently Long-Term Care. Patient's Male Friend with Whom She Has Been Living for Many Years and Is Not Able to Care for Her Anymore Because of His on Medical Issues. Care Was Discussed with the Legal Intern Katie. Past Medical History Past Medical History: Atrial Fibrillation, CVA/TIA, GERD/Reflux, Hyperlipidemia, Hypertension, Thyroid Disorder Additional Past Medical History / Comment(s): States she has cataracts, macular degeneration, glaucoma; thyroid removed in 1952, hip fracture left hip 08/22/2015 History of Any Multi-Drug Resistant Organisms: None Reported Past Surgical History: Tonsillectomy Additional Past Surgical History / Comment(s): Thyroidectomy in 1952, B/L carotid endartarectomy 2001, colonoscopies-diverticulosis,RECENT LT HIP HEMIARTHROPLASTY. Past Anesthesia/Blood Transfusion Reactions: No Reported Reaction Past Psychological History: No Psychological Hx Reported Additional Psychological History / Comment(s): lives with boyfriend. Smoking Status: Former smoker Past Alcohol Use History: None Reported Additional Past Alcohol Use History / Comment(s): STARTED SMOKING AT AGE 12 OR 13, SMOKED 1PPD, QUIT SMOKING AUGUST 2015 Past Drug Use History: None Reported - Past Family History Father Family Medical History: Myocardial Infarction ([place]) Mother Additional Family Medical History / Comment(s): Thinks mother had congestive heart Medications and Allergies Home Medications Medication Instructions Recorded Confirmed Type Furosemide [Lasix] 10 mg PO DAILY 12/10/14 05/12/19 History Losartan/Hydrochlorothiazide 1 tab PO DAILY 12/10/14 05/12/19 History [Losartan-Hctz 100-12.5 mg Tab] Omeprazole [PriLOSEC] 20 mg PO DAILY 12/10/14 05/12/19 History Potassium Chloride [Klor-Con 10] 10 meq PO HS 12/10/14 05/12/19 History Verapamil HCl 120 mg PO DAILY 12/10/14 05/12/19 History Warfarin [Coumadin] 5 mg PO TU 10/15/17 05/12/19 History Atorvastatin Calcium [Lipitor] 80 mg PO HS 05/12/19 05/12/19 History Warfarin [Coumadin] 2.5 mg PO SUMOWETHFRSA 05/12/19 05/12/19 History metFORMIN HCL 500 mg PO HS 05/12/19 05/12/19 History Allergies Allergy/AdvReac Type Severity Reaction Status Date / Time No Known Allergies Allergy Verified 05/12/19 21:15 Physical Exam Vitals: Vital Signs Temp Pulse Pulse Resp BP BP Pulse Ox 05/13/19 07:00 97.0 F L 77 20 92/62 95 05/12/19 23:00 97.4 F L 80 18 153/89 92 L 05/12/19 19:06 97.7 F 80 20 130/65 98 Intake and Output 05/12/19 05/13/19 05/13/19 22:59 06:59 14:59 Intake Total 100 Balance 100 Intake: Oral 100 Other: Voiding Method Toilet # Voids 1 Weight 67.086 kg Results CBC & Chem 7: 05/12/19 19:50 05/12/19 19:50 Labs: Abnormal Lab Results - Last 24 Hours (Table) 05/12/19 05/12/19 05/12/19 Range/Units 19:50 19:50 20:09 PT 29.7 H (9.0-12.0) sec INR 3.0 H (<1.2) APTT 36.0 H (22.0-30.0) sec BUN 21 H (7-17) mg/dL Glucose 135 H (74-99) mg/dL Urine Protein Trace H (Negative) Ur Leukocyte Esterase Large H (Negative) Urine WBC 25 H (0-5) /hpf Hyaline Casts 6 H (0-2) /lpf Urine Mucus Rare H (None) /hpf 05/13/19 Range/Units 09:18 PT 30.3 H (9.0-12.0) sec INR 3.1 H (<1.2) APTT (22.0-30.0) sec BUN (7-17) mg/dL Glucose (74-99) mg/dL Urine Protein (Negative) Ur Leukocyte Esterase (Negative) Urine WBC (0-5) /hpf Hyaline Casts (0-2) /lpf Urine Mucus (None) /hpf Microbiology - Last 24 Hours (Table) 05/12/19 20:09 Urine Culture - Preliminary Urine,Voided Thrombosis Risk Factor Assmnt - Choose All That Apply Any of the Below Risk Factors Present?: No Other Risk Factors: Yes Each Risk Factor Represents 3 Points: Age 75 years or older Other congenital or acquired thrombophilia - If yes, enter type in comment: No Thrombosis Risk Factor Assessment Total Risk Factor Score: 3 Thrombosis Risk Factor Assessment Level: Moderate Risk
[2019-05-13] MEDS ORDERED: WARFARIN 1 MG TAB PO ONE (18:00)
[2019-05-13] MEDS ORDERED: WARFARIN 5 MG TAB PO SCH (18:00)
[2019-05-13] MEDS: ATORVASTATIN 80 MG TAB PO SCH (20:38)
[2019-05-13] MEDS: metFORMIN 500 MG TAB PO SCH (20:38)
[2019-05-13] MEDS: SODIUM CHLORIDE 0.9% 1,000 ML IV SCH (20:38)
[2019-05-14 07:58] LABS: INR 2.7 (<1.2); Prothrombin Time 25.9 sec (9.0-12.0)
[2019-05-14] MEDS: PANTOPRAZOLE 40 MG TABLET PO SCH (08:22)
[2019-05-14] MEDS: LOSARTAN 50 MG TAB PO SCH (08:23)
[2019-05-14] MEDS: LOSARTAN-HCTZ 50-12.5 MG 1 EACH TAB PO SCH (08:23)
[2019-05-14] MEDS: VERAPAMIL SR 120 MG TABLET.ER PO SCH (08:23)
[2019-05-14] MEDS ORDERED: WARFARIN 2.5 MG TAB PO ONE (18:00)
[2019-05-14] MEDS ORDERED: WARFARIN 2.5 MG TAB PO SCH (18:00)
[2019-05-14] MEDS: ATORVASTATIN 80 MG TAB PO SCH (20:44)
[2019-05-14] MEDS: metFORMIN 500 MG TAB PO SCH (20:45)
[2019-05-14] MEDS: SODIUM CHLORIDE 0.9% 1,000 ML IV SCH (20:48)
--- NOTE | 2019-05-15 00:17 | P.PN ---
Progress Note - Text Progress Note Date: 05/14/19 Chief Complaint: Falls History of presenting complaint: This is a pleasant 88-year-old patient of Dr. Newell. Other extensive medical history to include chronic stable conditions, it'll fibrillation, hypothyroid, hypertension, hyperlipidemia, GERD, diverticulosis, osteoarthritis, left internal Carotid artery stenosis less than 69%, right internal carotid stenosis 90%.. Patient has been living with a friend for many years. He is unable to take care of the patient anymore as he has is on medical issues. Most of the history is obtained by the daughter the bedside. He does use a walker. what happens as patient will slowly from a fall backwards. Denies any chest pain no palpitation. Maybe getting dizzy upon standing up. Patient's memory has been failing. Appetite is okay no trouble with her bowels. Patient does complaint of pain in his lower back sometimes coming around to side and sometimes also pain in the right hip. Hospital course: Patient falls are now felt to be predominantly from orthostasis and other factors. UTI. Today-to sit up. Comfortable. Did tolerate her diet. Orthostatics are positive. Daughter the bedside. Review of systems: Was done for constitutional, cardiovascular, GI, pulmonary. relevant finding as above Active Medications Atorvastatin Calcium (Lipitor) 80 mg PO HS [facility] Last Admin: 05/14/19 20:44 Dose: 80 mg Documented by: HCTZ/Losartan Potassium (Hyzaar 50-12.5) 1 each PO DAILY [facility] Last Admin: 05/14/19 08:23 Dose: 1 each Documented by: Sodium Chloride (Saline 0.9%) 1,000 mls @ 20 mls/hr IV .Q24H [facility] Last Admin: 05/14/19 20:48 Dose: 20 mls/hr Documented by: Losartan Potassium (Cozaar) 50 mg PO DAILY [facility] Last Admin: 05/14/19 08:23 Dose: 50 mg Documented by: Metformin HCl (Glucophage) 500 mg PO [facility] Last Admin: 05/14/19 20:45 Dose: 500 mg Documented by: Miscellaneous Information (Coumadin Per Pharmacy) 0 each MISCELLANE DIRECTED PRN PRN Reason: PHARMACY DOSING WARFARIN Naloxone HCl (Narcan) 0.2 mg IV Q2M PRN PRN Reason: Opioid Reversal Pantoprazole Sodium (Protonix) 40 mg PO AC-BRKFST [facility] Last Admin: 05/14/19 08:22 Dose: 40 mg Documented by: Verapamil HCl (Isoptin Sr) 120 mg PO DAILY [facility] Last Admin: 05/14/19 08:23 Dose: 120 mg Documented by: Physical examination: VITAL SIGNS: 97.7, 73, 18, 11 1/57, 95% room air Positive for orthostatics GENERAL: Laying in bed, comfortable. EYES: Pupils equal. Conjunctiva normal. HEENT: External appearance of nose and ears normal, oral cavity grossly normal. NECK: JVD not raised; masses not palpable. HEART: First and second heart sounds are normal; no edema. LUNGS: Respiratory rate normal; clear to auscultation. ABDOMEN: Soft, nontender, liver spleen not palpable, no masses palpable. PSYCH: Alert and oriented x3; mood and affect normal. MUSCULOSKELETAL: Some tenderness over the right hip, evidence of OA especially in the hands INVESTIGATIONS, reviewed in the clinical context: INR 2.7 Previous testing White count 8.1 hemoglobin 14.1 INR 3 potassium 3.6 creatinine 1.04 UA positive for leukoesterase, WBC EKG tracing personally reviewed by me-atrial flutter rate controlled CT chest without contrast cardiomegaly, some right pleural effusion and infiltrate, moderate hiatal hernia Computed tomography scan of the brain cerebral atrophy with no acute Assessment: -Falls secondary to orthostatic, other contributing factors present to -Persistent atrial fibrillation chronically on Coumadin -Coumadin monitoring -Hyperlipidemia -Essential hypertension -GERD -Chronic diverticulosis -Primary osteoarthritis -Left internal Stenosis Less Than 65% with Left Side and More Than 90% on the Right Side -Mild to moderate Cognitive Impairment - Plan: Care was discussed at length with the daughter the bedside. 3 nights. Required for inpatient rehab placement. Other medications to continue. Stockings ordered. We'll add Florinef.
[2019-05-15 08:14] LABS: INR 2.6 (<1.2)
[2019-05-15] MEDS: PANTOPRAZOLE 40 MG TABLET PO SCH (08:22)
[2019-05-15] MEDS: VERAPAMIL SR 120 MG TABLET.ER PO SCH (08:22)
[2019-05-15] MEDS: FLUDROCORTISONE 0.1 MG TAB PO SCH ×2 (08:22→20:51)
[2019-05-15] MEDS: LOSARTAN-HCTZ 50-12.5 MG 1 EACH TAB PO SCH (08:22)
[2019-05-15] MEDS: LOSARTAN 50 MG TAB PO SCH (08:22)
[2019-05-15] MEDS: CEPHALEXIN 250 MG CAP PO SCH ×3 (08:23→20:52)
[2019-05-15] MEDS ORDERED: ASPIRIN 325 MG TAB PO STA (11:02)
--- NOTE | 2019-05-15 12:18 | CT ---
EXAMINATION TYPE: CT brain wo con for TPA DATE OF EXAM: 05/15/2019 COMPARISON: 05/12/2019 HISTORY: Mental status changes CT DLP: 2886.[address] of the brain was performed. The ventricles, basal cisterns and sulci overlying the cerebral convexities demonstrate mild enlargem ent. There is no evidence for intracranial hemorrhage or sulcal effacement. There is decreased attenuation about the periventricular white matter and deep white matter of both c erebral hemispheres, compatible with chronic small vessel ischemia. Differential diagnosis does inclu de demyelination. No mass effects are seen.No midline shift. Osseous calvarium is intact. If symptoms persist consider MRI. IMPRESSION: 1. Age related atrophic and chronic small vessel ischemic change without acute intracranial process s een at this time.
--- NOTE | 2019-05-15 12:22 | CT ---
EXAMINATION TYPE: CODE STROKE: CTA head neck DATE OF EXAM: 05/15/2019 COMPARISON: HISTORY: Mental status changes CT DLP: 413.07 mGycm CONTRAST: Performed with IV Contrast, patient injected with 65 mL of Isovue 370. Combination Contrast CTA cervical carotids and [place] CTA cervical carotids with 3-D recons truction Contrast CTA of the cervical carotids was performed 3-D reconstruction imaging obtained at a separate workstation. Right carotid system: Mild plaque is seen of the right common carotid artery. There is moderate plaq ue also noted at the carotid bulb and proximal ICA. Estimated diameter reduction of greater than 90% . ECA is patent. Right vertebral artery appears unremarkable. Left carotid system: Mild plaque is seen of the left common carotid artery. There is moderate plaque also noted at the carotid bulb and proximal ICA. Estimated diameter reduction of greater than 80%. ECA is patent. Left vertebral artery appears unremarkable. IMPRESSION: 1. Moderate calcified plaque noted about the bilateral carotid bulbs. Estimated diameter reduction of greater than 90% right ICA and greater than 80% left ICA. CTA [place] with 3-D reconstruction Contrast CTA of the [place] was performed 3-D reconstruction imaging obtained at a separate workstation. Vertebrobasilar system as well as intracranial portions of the internal carotid arteries and their ma heriberto tributaries are patent. I do not see evidence for sizable aneurysm or vascular malformation. Pl ease note MRI provides greater sensitivity and specificity. Visualized brain appears grossly unremar kable. IMPRESSION: 1. No significant abnormality.
--- NOTE | 2019-05-15 15:58 | P.CNNES ---
History of Present Illness Consult date: 05/15/19 Requesting physician: Michele Harris Reason for Consult: Rule out CVA. History of Present Illness: Patient is a 89-year-old female, who has history of bilateral carotid endarterectomy in 2011, also atrial fibrillation, on Coumadin with therapeutic INR, was admitted to the hospital on 05/12/2019 for dizziness and fall. Patient does get dizzy 2 or 3 times a day which can occur on standing up, although can also occur while she is sitting on the couch. Patient was diagnosed with UTI and is being treated. Patient lives at her home, but is awaiting placement. Patient this morning while in the hospital had an episode of slurred speech, right facial droop which was noticeable by her family members as well as the claire sician. Stroke code was called. Patient's symptoms resolved in 15-20 minutes as per patient's family, although the nurse reported that it lasted for 2-3 hours. Patient underwent stat computed tomography scan of the head, which revealed no acute process. CTA of the head showed moderate calcified plaque noted about the bilateral carotid bulbs. Estimated diameter reduction of greater than 90% right ICA and greater than 80% left ICA. EKG shows atrial fibrillation. Patient's computed tomography scan of the cervical spine showed spondylosis in the cervical spine more severe at C4 5. Patient's blood test shows normal CBC, her most recent INR is 2.6. Chem-7 is normal, UA shows large amount of leukocyte Estrace, 25 WBCs. Patient is currently on Keflex. At present patient denies any focal symptoms. Her family states that she is back to baseline. Patient has history of tobacco use of one pack per day from age 15 to age 87, quit 2 years ago. She has hypertension but no diabetes. Patient has history of bilateral CEA performed in 2011. Patient has atrial fibrillation, on Coumadin, w ith therapeutic INR 2.6 as of this morning. Her last hemoglobin A1c was 6.4 on 12/10/2014. Review of Systems Arthritis, tiredness. Denies any loss of vision, hoarseness or total dysphagia. She is hard of hearing. Denies abdominal pain nausea vomiting diarrhea. Past Medical History Past Medical History: Atrial Fibrillation, CVA/TIA, GERD/Reflux, Hyperlipidemia, Hypertension, Thyroid Disorder Additional Past Medical History / Comment(s): States she has cataracts, macular degeneration, glaucoma; thyroid removed in 1952, hip fracture left hip 08/22/2015 History of Any Multi-Drug Resistant Organisms: None Reported Past Surgical History: Tonsillectomy Additional Past Surgical History / Comment(s): Thyroidectomy in 1952, B/L ca rotid endartarectomy 2001, colonoscopies-diverticulosis,RECENT LT HIP HEMIARTHROPLASTY. Past Anesthesia/Blood Transfusion Reactions: No Reported Reaction Past Psychological History: No Psychological Hx Reported Additional Psychological History / Comment(s): lives with boyfriend. Smoking Status: Former smoker Past Alcohol Use History: None Reported Additional Past Alcohol Use History / Comment(s): STARTED SMOKING AT AGE 12 OR 13, SMOKED 1PPD, QUIT SMOKING AUGUST 2015 Past Drug Use History: None Reported - Past Family History Father Family Medical History: Myocardial Infarction ([place]) Mother Additional Family Medical History / Comment(s): Thinks mother had congestive heart Medications and Allergies Home Medications Medication Instructions Recorded Confirmed Type Furosemide [Lasix] 10 mg PO DAILY 12/10/14 05/12/19 History Losartan/Hydrochlorothiazide 1 tab PO DAILY 12/10/14 05/12/19 History [Losartan-Hctz 100-12.5 mg Tab] Omeprazole [PriLOSEC] 20 mg PO DAILY 12/10/14 05/12/19 History Potassium Chloride [Klor-Con 10] 10 meq PO HS 12/10/14 05/12/19 History Verapamil HCl [Calan] 120 mg PO DAILY 12/10/14 05/12/19 History Warfarin [Coumadin] 5 mg PO TU 10/15/17 05/12/19 History Atorvastatin Calcium [Lipitor] 80 mg PO HS 05/12/19 05/12/19 History Warfarin [Coumadin] 2.5 mg PO SUMOWETHFRSA 05/12/19 05/12/19 History metFORMIN HCL 500 mg PO HS 05/12/19 05/12/19 History Allergies Allergy/AdvReac Type Severity Reaction Status Date / Time No Known Allergies Allergy Verified 05/12/19 21:15 Physical Examination - Vital Signs Vital Signs: Vital Signs Temp Pulse Resp BP BP BP Pulse Ox 05/15/19 13:04 98.1 F 67 17 115/65 90 L 05/15/19 11:40 16 96 05/15/19 11:05 66 103/72 05/15/19 05:08 97 F L 98 20 162/81 93 L 05/15/19 00:00 19 05/14/19 21:15 97.7 F 84 18 148/84 131/91 151/80 93 L Intake and Output 05/15/19 05/15/19 05/15/19 06:59 14:59 22:59 Intake Total 240 Balance 240 Intake: Oral 240 Other: Voiding Method Toilet Toilet # Voids 2 2 On examination patient is an elderly female, in no distress. She is a lert and awake. Speech and language functions appears normal for age. No aphasia or dysarthria. On cranial nerve examination pupils are round and reacting to light, visual agarwal are full on confrontation. Extraocular muscles are intact with no nystagmus. Face is symmetric and tongue protrudes the midline. On muscle strength testing there is no pronator drift and the strength appears normal in the arms and legs distally and proximally reflexes are 1+ to 2 and plantars downgoing. Sensory touch is equal. No ataxia for [id number] testing. Tone and bulk of muscles normal. Gait deferred. Chest is clear, S1 and S2 audible. No peripheral edema. Results - Laboratory Findings CBC and BMP: 05/12/19 19:50 05/12/19 19:50 Abnormal Lab Findings: Abnormal Labs 05/12/19 05/12/19 05/12/19 19:50 19:50 20:09 PT 29.7 H INR 3.0 H APTT 36.0 H BUN 21 H Glucose 135 H Urine Protein Trace H Ur Leukocyte Esterase Large H Urine WBC 25 H Hyaline Casts 6 H Urine Mucus Rare H 05/13/19 05/14/19 05/15/19 09:18 06:55 07:25 PT 30.3 H 25.9 H 25.0 H INR 3.1 H 2.7 H 2.6 H APTT BUN Glucose Urine Protein Ur Leukocyte Esterase Urine WBC Hyaline Casts Urine Mucus Assessment and Plan Assessment: * Probable TIA manifesting with transient slurred speech and facial droop. Her symptoms resolved in 15-20 minutes. * Patient has bilateral ICA stenosis, probably symptomatic at this time. CTA of the neck revealed > 90% stenosis of the right ICA, and > 80% stenosis of the left ICA. * Atrial fibrillation, on Coumadin, with therapeutic INR. * Recurrent dizziness, falls, possibly could be related to severe bilateral ICA stenosis. * Hypertension * X tobacco use. Plan: * Patient is on Coumadin for atrial fibrillation. However Coumadin does not prevent TIAs typically from vascular stenosis. * Patient will be started on aspirin 81 mg daily along with Coumadin. * Suggest vascular surgical consultation for bilateral ICA stenosis. Patient already has history of bilateral CEA in the past. Uncertain if she would be a candidate for ICA stenting, due to her multiple comorbidities. * We will check hemoglobin A1c and fasting a.m. lipid panel. * We will follow.
[2019-05-15] MEDS ORDERED: WARFARIN 2.5 MG TAB PO ONE (18:00)
[2019-05-15] MEDS: metFORMIN 500 MG TAB PO SCH (20:51)
[2019-05-15] MEDS: SODIUM CHLORIDE 0.9% 1,000 ML IV SCH (20:51)
[2019-05-15] MEDS: ATORVASTATIN 80 MG TAB PO SCH (20:51)
--- NOTE | 2019-05-15 22:09 | P.EN ---
Critical care note: Presenting complaint: Altered speech Interval history: This morning when I came to the room family was present. Patient sitting on the chair. I went to greet the patient noticed that the patient's face was slightly put on site and his speech was slurred. Patient was slightly leaning to the right side. Left arm was a bit weak. Patient's daughter, significant other were present. They felt the changes recommended at the last 1 hour. I did call a code stroke. Ordered a stat computed tomography scan of the brain. 325 mg of aspirin to be chewed. Neuro checks. Patient was moved from the chair to the bed. Vital signs were checked. Consultation was made to neurology. Given that patient is on Coumadin patient not a candidate for TPA. On examination: 97, 66, 103/72, and 9 3% on room air Gen. appearance-sitting up in a chair leaning to the right side Neck jugular not responsible palpable Cardiovascular-hearts irregular no edema Abdomen-soft nontender no palpable Neurological-facial asymmetry, slurred speech, some drift of the left arm INVESTIGATIONS, reviewed in the clinical context: Patient is put on telemetry. Stat computed tomography scan of the brain was ordered. Assessment: Acute stroke Plan: Code stroke was called. Neurology consultation was done. Neuro checks are being started. Aspirin was ordered. Stat computed tomography scan of brain was ordered. Neuro checks. Patient be moved to telemetry cardiac floor. Patient ADMITTED for TPA. Care was discussed with the nursing staff in detail. And with stroke quarter to. Dr. Palomino from nephrology was consulted. Also discussed the patient and family and updated them of same. Total critical care time spent was 40 minutes.
--- NOTE | 2019-05-15 22:17 | P.PN ---
Progress Note - Text Progress Note Date: 05/15/19 Chief Complaint: Falls History of presenting complaint: This is a pleasant 88-year-old patient of Dr. Newell. Other extensive medical history to include chronic stable conditions, it'll fibrillation, hypothyroid, hypertension, hyperlipidemia, GERD, diverticulosis, osteoarthritis, left internal Carotid artery stenosis less than 69%, right internal carotid stenosis 90%.. Patient has been living with a friend for many years. He is unable to take care of the patient anymore as he has is on medical issues. Most of the history is obtained by the daughter the bedside. He does use a walker. what happens as patient will slowly from a fall backwards. Denies any chest pain no palpitation. Maybe getting dizzy upon standing up. Patient's memory has been failing. Appetite is okay no trouble with her bowels. Patient does complaint of pain in his lower back sometimes coming around to side and sometimes also pain in the right hip. Hospital course: Patient falls are now felt to be predominantly from orthostasis and other factors. UTI. Today-patient had an acute stroke on her today. Patient moved to 3 S. See my event note Review of systems: Was done for constitutional, cardiovascular, GI, pulmonary. relevant finding as above Active Medications Atorvastatin Calcium (Lipitor) 80 mg PO HS [facility] Last Admin: 05/15/19 20:51 Dose: 80 mg Documented by: Cephalexin (Keflex) 250 mg PO TID [facility] Last Admin: 05/15/19 20:52 Dose: 250 mg Documented by: Fludrocortisone Acetate (Florinef) 0.05 mg PO BID [facility] Last Admin: 05/15/19 20:51 Dose: 0.05 mg Documented by: HCTZ/Losartan Potassium (Hyzaar 50-12.5) 1 each PO DAILY [facility] Last Admin: 05/15/19 08:22 Dose: 1 each Documented by: Sodium Chloride (Saline 0.9%) 1,000 mls @ 20 mls/hr IV .Q24H [facility] Last Admin: 05/15/19 20:51 Dose: 20 mls/hr Documented by: Losartan Potassium (Cozaar) 50 mg PO DAILY [facility] Last Admin: 05/15/19 08:22 Dose: 50 mg Documented by: Metformin HCl (Glucophage) 500 mg PO HS [facility] Last Admin: 05/15/19 20:51 Dose: 500 mg Documented by: Miscellaneous Information (Coumadin Per Pharmacy) 0 each MISCELLANE DIRECTED PRN PRN Reason: PHARMACY DOSING WARFARIN Naloxone HCl (Narcan) 0.2 mg IV Q2M PRN PRN Reason: Opioid Reversal Pantoprazole Sodium (Protonix) 40 mg PO AC-BRKFST [facility] Last Admin: 05/15/19 08:22 Dose: 40 mg Documented by: Verapamil HCl (Isoptin Sr) 120 mg PO DAILY [facility] Last Admin: 05/15/19 08:22 Dose: 120 mg Documented by: Physical examination: VITAL SIGNS: 98.1, 67, 17, 11 5/65, 90% room air Positive for orthostatics GENERAL: Laying in bed, comfortable. EYES: Pupils equal. Conjunctiva normal. HEENT: External appearance of nose and ears normal, oral cavity grossly normal. NECK: JVD not raised; masses not palpable. HEART: First and second heart sounds are normal; no edema. LUNGS: Respiratory rate normal; clear to auscultation. ABDOMEN: Soft, nontender, liver spleen not palpable, no masses palpable. PSYCH: AAO 3.. NEUROLOGICAL: Slurred speech improved. MUSCULOSKELETAL: Some tenderness over the right hip, evidence of OA especially in the hands INVESTIGATIONS, reviewed in the clinical context: INR 2.6 Computed tomography scan brain-negative for acute stroke Previous testing White count 8.1 hemoglobin 14.1 INR 3 potassium 3.6 creatinine 1.04 UA positive for leukoesterase, WBC EKG tracing personally reviewed by me-atrial flutter rate controlled CT chest without contrast cardiomegaly, some right pleural effusion and infiltrate, moderate hiatal hernia Computed tomography scan of the brain cerebral atrophy with no acute Assessment: -TIA, with initial computed tomography scan negative. We need a repeat computed tomography scan in 24 hours or MRI. Symptoms improved. -Falls secondary to orthostatic, other contributing factors present to -Orthostatic hypotension -Persistent atrial fibrillation chronically on Coumadin -Coumadin monitoring -Hyperlipidemia -Essential hypertension -GERD -Chronic diverticulosis -Primary osteoarthritis -Left internal Stenosis Less Than 65% with Left Side and More Than 90% on the Right Side -Mild to moderate Cognitive Impairment - Plan: Patient moved to [facility] on consult. started on Florinef yesterday. Other medications to continue. Delay discharge to the F at least for 24 hours..
[2019-05-16 06:48] VITALS: BP 155/98; PULSE 94; RESP 16; TEMP 97.8
[2019-05-16] MEDS: FLUDROCORTISONE 0.1 MG TAB PO SCH (08:24)
[2019-05-16] MEDS: CEPHALEXIN 250 MG CAP PO SCH (08:24)
[2019-05-16] MEDS: VERAPAMIL SR 120 MG TABLET.ER PO SCH (08:24)
[2019-05-16] MEDS: PANTOPRAZOLE 40 MG TABLET PO SCH (08:24)
[2019-05-16] MEDS: LOSARTAN 50 MG TAB PO SCH (08:25)
[2019-05-16 09:04] LABS: Cholesterol 148 mg/dL (<200); HDL Cholesterol 35 mg/dL (40-60); LDL Cholesterol,Calculated 83 mg/dL (0-99); Triglycerides 150 mg/dL (<150)
[2019-05-16 09:10] LABS: INR 3.2 (<1.2); Prothrombin Time 30.9 sec (9.0-12.0)
[2019-05-16] MEDS ORDERED: ASPIRIN 81 MG PO SCH (09:30)
[2019-05-16] MEDS: LOSARTAN-HCTZ 50-12.5 MG 1 EACH TAB PO SCH (09:59)
--- NOTE | 2019-05-16 12:36 | P.DS ---
Providers Date of admission: 05/13/19 10:53 Expected date of discharge: 05/16/19 Attending physician: Michele Harris Consults: 05/15/19 11:03 Consult Physician Stat Consulting Provider: Jessica Callejas Consult Reason/Comments: r/o stroke Do you want consulting provider notified?: Yes 05/16/19 09:26 Consult Physician Routine Consulting Provider: Brett Zaragoza Consult Reason/Comments: ICA stenosis Do you want consulting provider notified?: Yes Primary care physician: Herbert Reece [facility] Course: Chief Complaint: Falls History of presenting complaint: This is a pleasant 88-year-old patient of Dr. Newell. Other extensive medical history to include chronic stable conditions, it'll fibrillation, hypothyroid, hypertension, hyperlipidemia, GERD, diverticulosis, osteoarthritis, left internal Carotid artery stenosis less than 69%, right internal carotid stenosis 90%.. Patient has been living with a friend for many years. He is unable to take care of the patient anymore as he has is on medical issues. Most of the history is obtained by the daughter the bedside. He does use a walker. what happens as patient will slowly from a fall backwards. Denies any chest pain no palpitation. Maybe getting dizzy upon standing up. Patient's memory has been failing. Appetite is okay no trouble with her bowels. Patient does complaint of pain in his lower back sometimes coming around to side and sometimes also pain in the right hip. Hospital course: Patient falls are now felt to be predominantly from orthostasis and other factors. UTI. Had an episode of slurred vision weakness in the left arm. Symptoms eventually subsided. Diagnosis TIA. Computed tomography scan brain negative. Today-patient stable. Started on Florinef. More steady ambulating. Discussion-had a lengthy discussion of the patient daughter the bedside. Patient does not want to have any surgery for her carotid stenosis. Has seen Dr. Valentin from vascular before. Did not finish to be hospitalized for TIA or stroke symptoms. This will be passed on to the [facility]. Questions were answered. Discussed with social secretary. Discussion and discharge planning more than 35 minutes Consultation: Dr. Palomino from neurology Dr. Gill Zaragoza from vascular Physical examination: VITAL SIGNS: 97.8, 94, 16, 155/98, 93% on room air (Previously Positive for orthostatics) GENERAL: Sitting up in a recliner, EYES: Pupils equal. Conjunctiva normal. HEENT: External appearance of nose and ears normal, oral cavity grossly normal. NECK: JVD not raised; masses not palpable. HEART: First and second heart sounds are normal; no edema. LUNGS: Respiratory rate normal; clear to auscultation. ABDOMEN: Soft, nontender, liver spleen not palpable, no masses palpable. PSYCH: Answering simple questions NEUROLOGICAL: No focal weakness.. MUSCULOSKELETAL: Some tenderness over the right hip, evidence of OA especially in the hands INVESTIGATIONS, reviewed in the clinical context: INR 3.2 Computed tomography scan brain-negative for acute stroke CT angiogram of the head and neck-stenosis on the right ICA greater than 90% and greater than 80% on the left ICA Previous testing White count 8.1 hemoglobin 14.1 INR 3 potassium 3.6 creatinine 1.04 UA positive for leukoesterase, WBC EKG tracing personally reviewed by me-atrial flutter rate controlled CT chest without contrast cardiomegaly, some right pleural effusion and infiltrate, moderate hiatal hernia Computed tomography scan of the brain cerebral atrophy with no acute Assessment: -TIA, computed tomography scan negative. -Bilateral significant carotid artery stenosis with the development 90% on the right ICA, reviewed 80% the left ICA -Falls secondary to orthostatic, other contributing factors present to, improved with Florinef -Orthostatic hypertension -Persistent atrial fibrillation chronically on Coumadin -Coumadin monitoring -Hyperlipidemia -Essential hypertension -GERD -Chronic diverticulosis -Primary osteoarthritis -Mild to moderate Cognitive Impairment - [facility]: [facility] Plan - Discharge Summary Discharge Rx Participant: No New Discharge Prescriptions: New Aspirin 81 mg PO DAILY chew Fludrocortisone [Florinef] 0.05 mg PO BID tab Cephalexin [Keflex] 250 mg PO TID #9 cap Continue Verapamil HCl [Calan] 120 mg PO DAILY Losartan/Hydrochlorothiazide [Losartan-Hctz 100-12.5 mg Tab] 1 tab PO DAILY Omeprazole [PriLOSEC] 20 mg PO DAILY Warfarin [Coumadin] 5 mg PO TU Warfarin [Coumadin] 2.5 mg PO SUMOWETHFRSA Atorvastatin Calcium [Lipitor] 80 mg PO HS metFORMIN HCL 500 mg PO HS Discontinued Furosemide [Lasix] 10 mg PO DAILY Potassium Chloride [Klor-Con 10] 10 meq PO HS Discharge Medication List Losartan/Hydrochlorothiazide [Losartan-Hctz 100-12.5 mg Tab] 1 tab PO DAILY 12/10/14 [History] Omeprazole [PriLOSEC] 20 mg PO DAILY 12/10/14 [History] Verapamil HCl [Calan] 120 mg PO DAILY 12/10/14 [History] Warfarin [Coumadin] 5 mg PO TU 10/15/17 [History] Atorvastatin Calcium [Lipitor] 80 mg PO HS 05/12/19 [History] Warfarin [Coumadin] 2.5 mg PO SUMOWETHFRSA 05/12/19 [History] metFORMIN HCL 500 mg PO HS 05/12/19 [History] Aspirin 81 mg PO DAILY chew 05/16/19 [Rx] Cephalexin [Keflex] 250 mg PO TID #9 cap 05/16/19 [Rx] Fludrocortisone [Florinef] 0.05 mg PO BID tab 05/16/19 [Rx] Follow up Appointment(s)/Referral(s): Herbert Newell MD [Primary Care Provider] - 1-2 days Activity/Diet/Wound Care/Special Instructions: Per patient's wishes-do not hospitalize for TIA/stroke symptoms
--- NOTE | 2019-05-16 14:05 | CONS ---
DATE OF CONSULTATION: 05/16/2019 This is 89-year-old female, well known to me from my office. Patient has history of bilateral carotid endarterectomy done in the past. The patient had history of fall and brought to the emergency room and admitted. CT of the chest was negative. The patient had a CT of the carotids which shows right side 90%, left side 80%. No history of motor deficit. Patient's medical, history of atrial fibrillation for which patient is on Coumadin and she has been admitted, evaluated by the hospitalist. I was consulted for further evaluation. The patient was seen in her room, sitting on in good position and having her lunch. Neck is supple. Chest, a few crackles at the lung bases. Abdomen is soft. Femoral pulses are present. Normal motor function. At this point, patient is going home today. The patient is a high risk for any surgical intervention. I have discussed with the family and the daughter. They understand the patient is going to go to [facility] and follow up in my office if she needed. At this point, patient is stable from a surgical point of view. MMODL / IJN: [id number] / MTDTati
[2019-05-16] MEDS ORDERED: WARFARIN 1 MG TAB PO ONE (18:00)
--- NOTE | 2019-05-21 13:20 | CDI ---
Documentation Clarification Form Date: 05/21/2019 01:09:15 PM From: Dayami Ayala Phone: If you have a question about this query, please contact Vicki Serrano [employer] at [phone] between 8am and 5pm. Admit Date: 05/13/2019 10:53:00 AM Patient Name: Yadira Hylton Visit Number: [id number] Discharge Date: 05/16/2019 04:03:00 PM ATTENTION: The Clinical Documentation Specialists (CDI) and [facility] Coding Staff appreciate your assistance in clarifying documentation. Please respond to the clarification below the line at the bottom and electronically sign. The CDI & [facility] Coding staff will review the response and follow-up if needed. Please note: Queries are made part of the Legal Health Record. If you have any questions, please contact the author of this message via ITS. Dr. Michele Harris TIA is documented as a diagnosis in the DCS. Patient also has bilateral significant carotid stenosis, 90% right ICA and 80% left ICA. Please clarify if patient's patients TIA symptoms are due to bilateral ICA stenosis.: Patient history/risk factors: previous carotid endarterectomy. stenosis bilateral ICA's Clinical indicators: facial droop, slurred speech CT head: Negative Carotid US: 90% right ICA 80% Left ICA Treatment: Patient does not wish for treatment In your professional opinion, please specify underlying etiology of the transient ischemic attack: Carotid Stenosis Other (please specify): Etiology unknown or Unable to determine TIA likely secondary to right ICA stenosis_ MTDD
== END 2019-05-16 16:03 | DRG 68 ==
LOC: EC 19:00 → 6NMEDSUR 21:45 → OBSVTOIN 05-13 10:53
PROVIDERS: ADMIT Hospitalist; ATTEND Hospitalist
DX: I65.23 Occlusion and stenosis of bilateral carotid arteries (principal); I48.19 Other persistent atrial fibrillation; N39.0 Urinary tract infection, site not specified; E78.5 Hyperlipidemia, unspecified; E89.0 Postprocedural hypothyroidism; I10 Essential (primary) hypertension; I95.1 Orthostatic hypotension; K21.9 Gastro-esophageal reflux disease without esophagitis; K57.90 Diverticulosis of intestine, part unspecified, without perforation or abscess without bleeding; M19.91 Primary osteoarthritis, unspecified site; M47.812 Spondylosis without myelopathy or radiculopathy, cervical region; R29.6 Repeated falls; R29.810 Facial weakness; R47.81 Slurred speech; W19.XXXA Unspecified fall, initial encounter; M54.5 Low back pain; M25.551 Pain in right hip; H35.30 Unspecified macular degeneration; H26.9 Unspecified cataract; H40.9 Unspecified glaucoma; G62.9 Polyneuropathy, unspecified; Z79.01 Long term (current) use of anticoagulants; Z79.84 Long term (current) use of oral hypoglycemic drugs; Z79.899 Other long term (current) drug therapy; Z82.49 Family history of ischemic heart disease and other diseases of the circulatory system; Z86.73 Personal history of transient ischemic attack (TIA), and cerebral infarction without residual deficits; Z87.891 Personal history of nicotine dependence
CPT/HCPCS: 36415; 70450; 70496; 70498; 71250; 72125; 80048; 80061; 81001; 83735; 84484; 85025; 85610; 85730; 87086; 93005; 99284

== ENCOUNTER 2019-06-20 | Inpatient (IN) | payer MEDICARE, BC | END 2019-06-24 15:41 | DRG 880 | PROVIDERS: ADMIT Internal Medicine | CPT/HCPCS: 36415; 71045; 71046; 80048; 80053; 81001; 82140; 82550; 83605; 83735; 84132; 84484; 85025; 85610; 87040; 87086; 87502; 93005; 96361; 96365; 99285 ==

== ENCOUNTER 2019-08-04 12:45 | Emergency (ER) | payer MEDICARE, BC ==
[2019-08-04] MEDS ORDERED: ACETAMINOPHEN TAB 500 MG TAB PO STA (13:59)
--- NOTE | 2019-08-04 14:31 | ED ---
Fall HPI - General Chief Complaint: Fall Stated Complaint: Fall Time Seen by Provider: 08/04/19 12:50 Source: patient Mode of arrival: ambulatory - History of Present Illness Initial Comments: 89-year-old female patient presents to the emergency department today for evaluation after experiencing a fall. Patient is currently residing at [facility]. States that she was up in her room out of her wheelchair attempted to leave the room when she lost her balance and fell. Patient did fall backwards hitting her head on the ground. They deny loss of consciousness. She is complaining of left hip pain. Denies any headache, blurred vision, or double vision. Did have some bleeding from the back of the head. They're unsure last tetanus vaccine was. Denies any other injuries. Patient denies any neck pain, back pain, chest pain, shortness of breath, dizziness, weakness, abdominal pain, nausea, vomiting, or difficulties with bowel movements or urination. - Related Data Home Medications Medication Instructions Recorded Confirmed Atorvastatin Calcium [Lipitor] 80 mg PO HS 05/12/19 08/04/19 metFORMIN HCL 500 mg PO HS 05/12/19 08/04/19 Allopurinol [Zyloprim] 100 mg PO DAILY 06/20/19 08/04/19 Diclofenac Sodium Gel [Voltaren 2 gm TOPICAL DAILY PRN 06/20/19 08/04/19 Gel] Furosemide [Lasix] 10 mg PO DAILY 06/20/19 08/04/19 Losartan Potassium 100 mg PO DAILY 06/20/19 08/04/19 Potassium Chloride ER [K-Dur 10] 10 meq PO DAILY 06/20/19 08/04/19 rOPINIRole HCL [Requip] 0.25 mg PO HS 06/20/19 08/04/19 Acetaminophen Tab [Tylenol Tab] 1,000 mg PO BID 08/04/19 08/04/19 Lansoprazole 15 mg PO DAILY 08/04/19 08/04/19 Verapamil HCl [Verapamil ER] 120 mg PO DAILY 08/04/19 08/04/19 Warfarin [Coumadin] 2.5 mg PO HS 08/04/19 08/04/19 Previous Rx's Medication Instructions Recorded Aspirin 81 mg PO DAILY chew 05/16/19 Metoprolol Tartrate [Lopressor] 25 mg PO BID tab 06/24/19 Allergies Allergy/AdvReac Type Severity Reaction Status Date / Time No Known Allergies Allergy Verified 08/04/19 14:16 Review of Systems ROS Statement: Those systems with pertinent positive or pertinent negative responses have been documented in the HPI. ROS Other: All systems not noted in ROS Statement are negative. Past Medical History Past Medical History: Atrial Fibrillation, CVA/TIA, GERD/Reflux, Hyperlipidemia, Hypertension, Thyroid Disorder Additional Past Medical History / Comment(s): States she has cataracts, macular degeneration, glaucoma; thyroid removed in 1952, hip fracture left hip 08/22/2015 History of Any Multi-Drug Resistant Organisms: None Reported Past Surgical History: Tonsillectomy Additional Past Surgical History / Comment(s): Thyroidectomy in 1952, B/L carotid endartarectomy 2001, colonoscopies-diverticulosis,RECENT LT HIP HEMIARTHROPLASTY. Past Anesthesia/Blood Transfusion Reactions: No Reported Reaction Past Psychological History: No Psychological Hx Reported Smoking Status: Former smoker Past Alcohol Use History: None Reported Past Drug Use History: None Reported - Past Family History Father Family Medical History: Myocardial Infarction ([place]) Mother Additional Family Medical History / Comment(s): Thinks mother had congestive heart General Exam Limitations: no limitations General appearance: alert, in no apparent distress, other (This is a well- developed, well-nourished elderly female patient in no acute distress. Vital signs upon presentation are temperature 97.8F, pulse 58, respirations 20, blood pressure 153/77, pulse ox 98% on room air.) Head exam: Present: other (There is dried blood noted around a mole to the patient's posterior scalp. No bony step-off or deformity noted to palpation around the site.) Eye exam: Present: normal appearance, PERRL, EOMI. Absent: scleral icterus, conjunctival injection, periorbital swelling ENT exam: Present: normal exam, normal oropharynx, mucous membranes moist Respiratory exam: Present: normal lung sounds bilaterally. Absent: respiratory distress, wheezes, rales, rhonchi, stridor Cardiovascular Exam: Present: regular rate, normal rhythm, normal heart sounds. Absent: systolic murmur, diastolic murmur, rubs, gallop, clicks GI/Abdominal exam: Present: soft, normal bowel sounds. Absent: distended, tenderness, guarding, rebound, rigid Extremities exam: Present: normal inspection, full ROM, normal capillary refill, other (Left lateral hip tenderness. No shortening or rotation of the left leg. Skin to the left lower extremity is pink, warm, and dry. Cap refills less than 3 seconds. Pedal and posttibial pulses are 2+ and equal bilaterally.). Absent: tenderness, pedal edema, joint swelling, calf tenderness Neurological exam: Present: alert, CN II-XII intact. Absent: oriented X3 (oriented x1) Psychiatric exam: Present: normal affect, normal mood Skin exam: Present: warm, dry, intact, normal color. Absent: rash Course Vital Signs 08/04/19 08/04/19 12:45 14:37 Temperature 97.8 F 97.8 F Pulse Rate 58 L 60 Respiratory 20 18 Rate Blood Pressure 153/77 148/88 O2 Sat by Pulse 98 98 Oximetry Medical Decision Making - Medical Decision Making 89-year-old female patient presented to the emergency department today for evaluation after experiencing a fall at her extended care facility. Patient is complaining of left hip pain and daughter reported wound to the posterior scalp. Physical examination did reveal bleeding from around a mole on the patient's head. There is no bony step-off or deformity noted to palpation around the site. Patient did exhibit confuse conversation, daughter reports the patient does have dementia however she has not seen her in a month and is unsure if this is her baseline. Patient denies any headache, blurred vision, double vision. She is otherwise neurologically intact. X-rays of the left hip and pelvis were negative. CT brain and C-spine was obtained and did show a subdural hematoma. We did discuss findings with the emergency physician at [facility] who accepts transfer for neurosurgery evaluation. Patient does take Coumadin, we did order vitamin K IV. Labs are currently pending. - Lab Data Result diagrams: 08/04/19 15:42 Lab Results 08/04/19 Range/Units 15:42 WBC 10.8 H (3.8-10.6) k/uL RBC 4.24 (3.80-5.40) m/uL Hgb 13.1 (11.4-16.0) gm/dL Hct 40.5 (34.0-46.0) % MCV 95.6 (80.0-100.0) fL MCH 30.9 (25.0-35.0) pg MCHC 32.3 (31.0-37.0) g/dL RDW 14.1 (11.5-15.5) % Plt Count 218 (150-450) k/uL Neutrophils % 78 % Lymphocytes % 12 % Monocytes % 4 % Eosinophils % 5 % Basophils % 0 % Neutrophils # 8.5 H (1.3-7.7) k/uL Lymphocytes # 1.3 (1.0-4.8) k/uL Monocytes # 0.4 (0-1.0) k/uL Eosinophils # 0.5 (0-0.7) k/uL Basophils # 0.0 (0-0.2) k/uL - Radiology Data Radiology results: report reviewed, image reviewed Two-view x-ray of the left hip is obtained. Report was reviewed in its entirety. Impression by Dr. Hand shows no acute osseous abnormality of the left hip prosthesis CT brain C-spine without contrast was obtained. Report was reviewed in its entirety. Impression by Dr. Hand shows acute subdural hematoma left little cranial fossa extending along the tentorium and adjacent to the left frontal region. CT cervical spine shows no acute osseous abnormality. Degenerative changes including loss of disc height and facet hypertrophy. Disposition Clinical Impression: Traumatic subdural hematoma, Hip pain Disposition: OTHER INSTITUTION NOT DEFINED Condition: Serious Referrals: Gregg Membreno MD [Primary Care Provider] - 1-2 days - Out of Hospital Transfer - Req. Specs Out of Hospital Transfer - Requested Specifics: Other Emergency Center ([facility])
[2019-08-04 14:39] VITALS: RESP 18
--- NOTE | 2019-08-04 14:42 | XR ---
EXAMINATION TYPE: XR Hip LT and AP Pelvis DATE OF EXAM: 08/04/2019 COMPARISON: None HISTORY: Pain from fall yesterday TECHNIQUE: AP pelvis, 2 view left hip FINDINGS: The endoprosthesis is present. The acetabular component is intact. No acute fractures are e vident. Vascular calcifications present. Nonspecific bowel gas is present. IMPRESSION: 1. No acute osseous abnormality at the left hip prosthesis
--- NOTE | 2019-08-04 15:26 | CT ---
EXAMINATION TYPE: CT brain coltonine wo con DATE OF EXAM: 08/04/2019 COMPARISON: 05/15/2019 HISTORY: Fall CT DLP: 1327.1 mGycm, Automated exposure control for dose reduction was used. CONTRAST: Patient injected with 0 mL of Isovue 300. CT of the brain is performed utilizing 3 mm thick sections through the posterior fossa and 3 mm thick sections through the remaining calvarium. Study is performed within 24 hours of arrival to the hospital. There is an acute subdural hematoma along the tentorium extending anterior to the left temporal lobe with some mild mass effect on the adjacent brain. This has some very subtle continuation along the e xtra-axial space of the left frontal region. No intraparenchymal or intraventricular extension is campbell dent. Mild mass effect on the anterior left temporal lobe measuring 0.98 cm with very minimal contact with the frontal lobe is present. No mass lesion is evident. No acute infarcts are evident. No acute fractures are evident. Ventricles and sulci are appropriate for the patient age. Paranasal sinuses and mastoid air cells within the [id number] are clear. IMPRESSIONS: 1. Acute subdural hematoma left little cranial fossa extending along the tentorium and adjacent to th e left frontal region. Report called to Dr Carrasco 1523 hours at time of interpretation. CT cervical spine. COMPARISON: None CT of the cervical spine is performed in the axial plane at 2 mm thick sections. Reconstructed image s in the coronal, and sagittal plane are reviewed on the computer. No acute fractures are evident. Vertebral body alignment is normal. There is diffuse loss of disc height throughout the cervical spine. Vertebral body heights are preserved. No spinal canal stenosis is evident. Facet hypertrophy and uncovertebral joint hypertrophy is contributing to some foraminal narrowing gre ater on the left. IMPRESSIONS: 1. No acute osseous abnormality. 2. Degenerative changes including loss of disc height and facet hypertrophy
[2019-08-04 15:51] LABS: Basophils % (A) 0 %; Eosinophils # (A) 0.5 k/uL (0-0.7); Eosinophils % (A) 5 %; HCT 40.5 % (34.0-46.0); HGB 13.1 gm/dL (11.4-16.0); Lymphocytes # (A) 1.3 k/uL (1.0-4.8); Lymphocytes % (A) 12 %; MCH 30.9 pg (25.0-35.0); MCHC 32.3 g/dL (31.0-37.0); MCV 95.6 fL (80.0-100.0); Mean Platelet Volume 8.6; Monocytes # (A) 0.4 k/uL (0-1.0); Monocytes % (A) 4 %; Neutrophils # (A) 8.5 k/uL (1.3-7.7); Neutrophils % (A) 78 %; Platelet Count 218 k/uL (150-450); RBC 4.24 m/uL (3.80-5.40); RDW 14.1 % (11.5-15.5); WBC 10.8 k/uL (3.8-10.6)
[2019-08-04] MEDS ORDERED: PHYTONADIONE 5 MG in SODIUM CHLORIDE 0.9% 50 ML IVPB STA (15:55)
[2019-08-04 15:59] LABS: Albumin 4.1 g/dL (3.5-5.0); Calcium 9.3 mg/dL (8.4-10.2); Potassium 4.8 mmol/L (3.5-5.1); Total Bilirubin 0.9 mg/dL (0.2-1.3); Total Protein 7.7 g/dL (6.3-8.2)
[2019-08-04 16:00] LABS: INR 2.4 (<1.2); Partial Thromboplastin Time 30.5 sec (22.0-30.0); Prothrombin Time 23.5 sec (9.0-12.0)
[2019-08-04 23:17] VITALS: BP 133/72; PULSE 74; TEMP 98.2
== END 2019-08-04 17:00 | disposition other institution (70) ==
LOC: EC 12:45
DX: S06.5X0A Traumatic subdural hemorrhage without loss of consciousness, initial encounter (principal); M25.552 Pain in left hip; F03.90 Unspecified dementia, unspecified severity, without behavioral disturbance, psychotic disturbance, mood disturbance, and anxiety; I48.91 Unspecified atrial fibrillation; K21.9 Gastro-esophageal reflux disease without esophagitis; I10 Essential (primary) hypertension; E78.5 Hyperlipidemia, unspecified; Z79.84 Long term (current) use of oral hypoglycemic drugs; Z79.01 Long term (current) use of anticoagulants; Z79.899 Other long term (current) drug therapy; Z86.73 Personal history of transient ischemic attack (TIA), and cerebral infarction without residual deficits; Z87.891 Personal history of nicotine dependence; W18.09XA Striking against other object with subsequent fall, initial encounter
CPT/HCPCS: 36415; 80053; 85025; 85610; 85730; 73502; 72125; 70450; 99285; 96365; J3430